=== PATIENT | male | born 1980 | race Caucasian/White ===

== ENCOUNTER 2022-11-16 10:29 | Day surgery (SDC) | payer OTHER ==
[~2022-11-16 10:29] MED LIST: ACETAMINOPHEN TAB 500 MG TAB PO PRN; DEXAMETHASONE SOD PHOSPHATE 4 MG/ML 1 ML VIAL IV ONE; HEPARIN SODIUM,PORCINE/PF 5,000 UNIT/0.5 ML SYRINGE SQ PRN; LACTATED RINGERS 1,000 ML IV SCH; LIDOCAINE 1% (10MG/ML) FOR IV START INTRADERMA PRN; ONDANSETRON 4 MG/2 ML VIAL IVP ONE; SCOPOLAMINE 1 MG/72 HR PATCH TRANSDERM ONE; fentaNYL (PF) 50 MCG/ML 2 ML AMP IV PRN
[2022-11-16 11:08] LABS: Glucose,Whole Blood 185 mg/dL (70-110)
[2022-11-16] MEDS ORDERED: MIDAZOLAM 2 MG/2 ML VIAL IVP ONE (11:25)
[2022-11-16] MEDS ORDERED: LABETALOL 5 MG/ML VIAL MDV ONE (11:57)
[2022-11-16] MEDS ORDERED: PROPOFOL 10 MG/ML 20 ML VIAL IV ONE (11:57)
[2022-11-16] MEDS ORDERED: GLYCOPYRROLATE 0.2 MG/ML 2 ML VIAL ONE (11:57)
[2022-11-16] MEDS ORDERED: MIDAZOLAM 2 MG/2 ML VIAL ONE (11:57)
[2022-11-16] MEDS ORDERED: fentaNYL (PF) 50 MCG/ML 2 ML AMP ONE (11:57)
[2022-11-16] MEDS ORDERED: ROCURONIUM 10 MG/ML (5 ML VIAL) IV ONE (11:57)
[2022-11-16] MEDS ORDERED: HYDROmorphone (PF) 1 MG/ML ONE (11:57)
[2022-11-16] MEDS ORDERED: KETOROLAC 15 MG/ML 1 ML VIAL ONE (11:57)
[2022-11-16] MEDS ORDERED: SUCCINYLCHOLINE CHLORIDE 200 MG/10 ML VIAL IV ONE (11:57)
[2022-11-16] MEDS ORDERED: NEOSTIGMINE 1 MG/ML 10 ML VIAL ONE (11:57)
[2022-11-16] MEDS ORDERED: LIDOCAINE 2% INJ 20 MG/ML (2 ML VIAL) ONE (11:57)
[2022-11-16] MEDS ORDERED: BUPIVACAIN-EPI 0.25%-1:200,000 30 ML VIAL SQ ONE ×2 (12:21→12:27)
[2022-11-16] MEDS ORDERED: LACTATED RINGERS 1,000 ML IV ONE (12:40)
--- NOTE | 2022-11-16 13:17 | P.OP ---
Date of Procedure: 11/16/22 Preoperative Diagnosis: Cholelithiasis Postoperative Diagnosis: Cholelithiasis Procedure(s) Performed: Laparoscopic cholecystectomy Anesthesia: MARY Surgeon: José Miguel Grsos Estimated Blood Loss (ml): 5 Pathology: other (Gallbladder) Condition: stable Disposition: PACU Description of Procedure: The patient was placed on the operating table. The patient received a general endotracheal tube anesthesia. The patients abdomen was prepped and draped in the usual sterile fashion. Through an infraumbilical stab incision, the fascia of the anterior abdominal wall was grasped with a pair of Kochers and then the Veress needle was placed in the peritoneal cavity. Position of the Veress needle was confirmed with positive drop test. The abdomen was then insufflated. After adequate insufflation, the 10 mm trocar was placed in the peritoneal cavity. Following this the laparoscope was placed in the peritoneal cavity. The patient was placed in the head-up, right side up position and then a 5 mm trocar was placed in the right lateral and right subcostal position under direct visualization. A 8 mm trocar was placed in the epigastric position. The gallbladder was grasped in the fundus and infundibulum. Traction on the gallbladder was placed in the lateral and the cephalad positions. The triangle of Calot was visualized.. The cystic duct was bluntly dissected until the union of the cystic duct and common bile duct was seen. A critical view of safety was achieved. The cystic duct was then divided and sealed with the Harmonic scissors. A PDS Endoloop was then placed throughout the cystic duct stump. The cystic artery divided and sealed with the Harmonic scissors. The gallbladder was then removed from the liver bed using Harmonic scissors. The gallbladder was then extracted through the epigastric port site. Operative field was checked for any bleeding spots and Harmonic scissors was used to coagulate the liver bed. The abdomen was irrigated. The trocars were removed. The skin was closed using interrupted 3-0 Vicryl suture. Dermabond dressing were applied. The patient tolerated the procedure well.
[2022-11-16 13:20] VITALS: TEMP 97.7
[2022-11-16] MEDS ORDERED: SODIUM CHLORIDE 0.9% 1,000 ML IV ONE (13:40)
[2022-11-16 14:12] VITALS: RESP 20
[2022-11-16] MEDS ORDERED: HYDROmorphone 0.5 MG/0.5 ML SYRINGE IVP ONE ×2 (14:37→15:26)
[2022-11-16 15:05] VITALS: PULSE 69
[2022-11-16] MEDS ORDERED: TAMSULOSIN 0.4 MG CAP.ER.24H PO ONE (15:10)
[2022-11-16] MEDS ORDERED: ONDANSETRON 4 MG/2 ML VIAL ONE (15:52)
[2022-11-16] MEDS ORDERED: ONDANSETRON 4 MG/2 ML VIAL IVP ONE (15:53)
[2022-11-16 16:28] VITALS: BP 158/97
== END 2022-11-16 16:37 | disposition home or self-care (01) ==
LOC: OR 10:29
PROVIDERS: ATTEND Surgery
DX: K80.12 Calculus of gallbladder with acute and chronic cholecystitis without obstruction (principal); I10 Essential (primary) hypertension; E11.9 Type 2 diabetes mellitus without complications; K21.9 Gastro-esophageal reflux disease without esophagitis; Z88.0 Allergy status to penicillin; Z88.2 Allergy status to sulfonamides; Z88.5 Allergy status to narcotic agent; Z79.84 Long term (current) use of oral hypoglycemic drugs; Z79.1 Long term (current) use of non-steroidal anti-inflammatories (NSAID); Z79.899 Other long term (current) drug therapy; Z98.890 Other specified postprocedural states
CPT/HCPCS: 88304; 47562; J2250; J0330; J2710; J0690; J2405; J3010; J1170 ×2; J1885; J2704; J1644; J2001